=== PATIENT | male | born 1975 | race Caucasian/White ===

== ENCOUNTER 2019-09-01 08:50 | Emergency (ER) | payer OTHER ==
[~2019-09-01] VITALS: Ht 167.6 cm; Wt 95.0 kg
--- NOTE | 2019-09-01 09:07 | NUR ---
Pt assessed, c/o right clavicle seperation on Friday from snowboarding accident. Pt was seen at [facility] and was told to come to ED for referral because he just moved to the area and has no PCP. Sling in place, CMS intact. Med hx DM 2. No other complaints. Will cont to monitor
--- NOTE | 2019-09-01 09:11 | NUR ---
PA at [facility] evaluating pt
[2019-09-01] MEDS ORDERED: HYDROcodone/APAP 5/325 TABLET ONE (09:27)
[2019-09-01] MEDS ORDERED: ONDANSETRON ODT 4 MG ONE (09:27)
[2019-09-01] MEDS ORDERED: ONDANSETRON ODT 4 MG PO ONE (09:30)
[2019-09-01] MEDS ORDERED: HYDROcodone/APAP 5/325 TABLET PO ONE (09:30)
[2019-09-01 10:08] VITALS: BP 145/87
== END 2019-09-01 10:12 | disposition home or self-care (01) ==
LOC: ED 10:05
DX: S43.121A Dislocation of right acromioclavicular joint, 100%-200% displacement, initial encounter (principal); I10 Essential (primary) hypertension; E11.9 Type 2 diabetes mellitus without complications; Z79.899 Other long term (current) drug therapy; X58.XXXA Exposure to other specified factors, initial encounter; Y93.89 Activity, other specified; Y92.89 Other specified places as the place of occurrence of the external cause; Y99.8 Other external cause status
CPT/HCPCS: 29105; 99283

== ENCOUNTER 2019-09-03 08:48 | Emergency (ER) | payer OTHER ==
[~2019-09-03] VITALS: Ht 170.2 cm; Wt 98.7 kg
[2019-09-03 08:51] VITALS: BP 153/93
== END 2019-09-03 09:36 | disposition home or self-care (01) ==
LOC: ED 09:30
DX: M25.511 Pain in right shoulder (principal); Z76.0 Encounter for issue of repeat prescription; R22.31 Localized swelling, mass and lump, right upper limb; I10 Essential (primary) hypertension; E11.9 Type 2 diabetes mellitus without complications; Z90.49 Acquired absence of other specified parts of digestive tract
CPT/HCPCS: 99283